=== PATIENT | male | born 1980 | race Caucasian/White ===

== ENCOUNTER 2024-07-14 17:41 | Emergency (ER) | payer OTHER, SELFPAY ==
[2024-07-14 17:47] VITALS: BP 142/105
--- NOTE | 2024-07-14 18:24 | ED.GENMED ---
History of Present Illness
General
Chief Complaint: Chest Pain
Source: patient
Time Seen by Provider: 07/14/24 18:13
History of Present Illness
History of Present Illness:
44-year-old male presents to the emergency room complaining of pain in his left upper chest. Symptoms have been present for approximately a week. He went to [place] 3 days ago where he had labs and a chest x-ray. He was told everything was
fine. However the symptoms have persisted. He describes it as a pounding type discomfort of left upper chest. It does not radiate anywhere. Nothing seems to make it better or worse. He denies any recent travel or periods of immobilization. He
does smoke a pack a day. He takes amlodipine for hypertension and Wegovy for diabetes. He denies feeling significant shortness of breath. No diaphoresis. Exertion does not seem to change the discomfort.
Past History
Past History
ED Past Medical History: HTN, NIDDM and Other (Obesity, cystic kidney causing mild renal insufficiency)
ED Past Surgical History: None
Social History
Tobacco: Smoker
Alcohol: None
Personal:
Living: with family
Employment: Other
Family History
Family History: Other
Phy Exam
Physical Exam
Physical Exam:
General: Awake, Alert, Oriented X3. No acute distress. Very high BMI
Vitals: Mildly tachycardic
Head: Atraumatic
Eyes: Pupils equal, EOMI
Throat: Airway intact, no exudates
Neck: Trachea midline
Lungs: Clear and equal b/l
Heart: Regular rate, no murmurs
Abd: Soft, Nontender, No pulsatile mass
Neuro: Nonfocal
Skin: Warm, dry, no rash
Extremities: pulses equal b/l, no edema
Scores
Heart Score for Chest Pain Patients
STEMI patient?: No
History: Slightly or Non-Suspicious
ECG: Normal
Age: </= 45 years
Risk Factors: 1 or 2 Risk Factors
Troponin: </= Normal Limit
Heart Score for Chest Pain Patients: 1
Heart Score Risk: 2.5% MACE over next 6 weeks
Course
Orders/Labs/Results
Orders:
Orders
07/14/24 17:42
EKG [Electrocardiogram (*1)] Urgent
Reason for Study: Chest Pain
EKG- Treatment ONCE
07/14/24 18:22
Complete Blood Count/With Diff Urgent
Comprehensive Metabolic Panel Urgent
Troponin I Urgent
07/14/24 18:27
D-Dimer Urgent
Abnormal Lab Results
07/14/24
18:22
WBC 13.1 H 10^3/uL
(4.8-10.8)
MCHC 32.5 L g/dL
(33.0-37.0)
RDW 14.8 H %
(11.5-14.5)
Abs Immat Gran (auto) 0.1 H 10^3/uL
(0-0.05)
Absolute Neuts (auto) 9.6 H 10^3/uL
(1.4-6.5)
Absolute Monos (auto) 0.8 H 10^3/uL
(0.1-0.6)
Lymphocytes % 18.9 L %
(20.5-51.1)
Chloride 109 H mmol/L
(98-107)
Carbon Dioxide 17 L mmol/L
(22-30)
BUN 23 H mg/dl
(9-20)
Creatinine 2.3 H mg/dL
(0.7-1.3)
07/14/24 18:22
07/14/24 18:22
Vital Signs
Initial and Last Documented VS:
Initial Vital Signs
Temp Pulse Resp BP Pulse Ox
98.1 F 114 20 142/105 98
07/14/24 17:47 07/14/24 17:47 07/14/24 17:47 07/14/24 17:47 07/14/24 17:47
Last Documented Vital Signs
Temp Pulse Resp BP Pulse Ox
98.1 F 114 20 142/105 98
07/14/24 17:47 07/14/24 17:47 07/14/24 17:47 07/14/24 17:47 07/14/24 17:47
MDM/Problems Addressed
Differential Diagnosis Includes:
Chest wall pain, PE, ACS
MDM/Problems Addressed:
Patient's EKG does not show any acute ischemic changes. Labs are unremarkable including a D-dimer and troponin. Patient had an x-ray just a couple days ago and I do not feel it would be appropriate to repeat it at this time. Suspect
musculoskeletal chest pain. Stable for discharge home.
*Pulse Oximetry
Patient hypoxic: no
*EKG
Interpreted by ED Provider?: Yes
Interpretation: abnormal
Heart Rate: 109
Rate: tachycardiac
Rhythm: sinus tachycardia
Interval: normal interval
QRS Pattern: normal QRS
Ischemia: non-specific ST changes
*Lead Mechanic Interpretation
Rate: tachycardiac
Interpretation: abnormal
Rhythm: sinus tachycardia
*Critical Care Note
Total Time (30-74mins, 75-104mins- exclusive of procedures): Not Applicable
ED Attending Note
-
Portions of this chart may have been created with voice recognition software.� Occasional wrong word or��sound alike� substitutions may have occurred due to the inherent limitations of voice recognition software.
Discharge Plan
Departure
Patient Disposition: Home (Routine Discharge)
Date of Disposition: 07/14/24
Time of Disposition: 19:50
Patient with high blood pressure during this ER visit?: Yes
Condition: Good
Discharge Problem:
Chest pain
Instructions: Chest Pain PCP Follow Up, BLOOD PRESSURE
Prescriptions:
No Action
metformin 500 MG tablet
500 mg PO DAILY
lisinopril 10 MG tablet
10 mg PO DAILY
Referrals:
Alec Mckeon MD [Family Provider] -
Interventions
Interventions:
*Risk Screen - Suicide Last Done: 07/14/24 17:47
*Neglect/Abuse Screening Last Done: 07/14/24 17:47
ED- Fall Risk Assessment Last Done: 07/14/24 20:08
*Nursing Disposition Last Done: 07/14/24 20:08
ED- Cardiac Assessment Last Done: 07/14/24 18:20
Discharge Date and Time
Discharge Date/Time: 07/14/24 20:09
Print Language: IRISH
[2024-07-14 18:29] LABS: % Basophils 0.6 % (0-2); % Eosinophils 0.7 % (0-6); % Immature Granulocytes 0.4 % (0-0.5); % Lymphocytes 18.9 % (20.5-51.1); % Monocytes 6.3 % (1.7-9.3); % Neutrophils 73.1 % (42.2-75.2); Absolute Basophils 0.1 10^3/uL (0-0.2); Absolute Eosinophils 0.1 10^3/uL (0-0.7); Absolute Immature Granulocytes 0.1 10^3/uL (0-0.05); Absolute Lymphocytes 2.5 10^3/uL (1.2-3.4); Absolute Monocytes 0.8 10^3/uL (0.1-0.6); Absolute Neutrophils 9.6 10^3/uL (1.4-6.5); Hematocrit 48.3 % (39.0-52.0); Hemoglobin 15.7 g/dL (13.0-18.0); Mean Corp Hgb Conc. 32.5 g/dL (33.0-37.0); Mean Corpuscular Hgb 27.2 pg (27.0-31.0); Mean Corpuscular Volume 83.6 fL (80.0-94.0); Mean Platelet Volume 9.1 fL (7.4-10.4); Nucleated Red Blood Cells % 0 % (-); Platelet Count 248 10^3/uL (130-400); Red Blood Cell Count 5.78 10^6/uL (4.70-6.10); Red Cell Dist. Width 14.8 % (11.5-14.5); White Blood Cell Count 13.1 10^3/uL (4.8-10.8)
[2024-07-14 18:47] LABS: ALT (SGPT) 30 U/L (0-50); AST (SGOT) 28 U/L (17-59); Albumin 4.4 g/dl (3.5-5.0); Alkaline Phosphatase 78 U/L (38-126); Blood Urea Nitrogen 23 mg/dl (9-20); Calcium 9.5 mg/dl (8.4-10.2); Carbon Dioxide 17 mmol/L (22-30); Chloride 109 mmol/L (98-107); Glucose 99 mg/dl (70-99); Potassium 4.6 mmol/L (3.5-5.1); Sodium 140 mmol/L (135-145); Total Bilirubin 0.6 mg/dl (0.2-1.3); Total Protein 7.7 g/dl (6.3-8.2); eGFR 34.81
[2024-07-14 18:48] LABS: D-Dimer 0.33 ug/mlFEU (0.00-0.50)
[2024-07-14 18:52] LABS: Troponin I < 0.012 ng/ml
== END 2024-07-14 20:09 | disposition home or self-care (01) ==
LOC: EMR 17:41
PROVIDERS: Emergency Medicine; EMERGENCY PHYSICIAN Emergency Medicine; FAMILY PHYSICIAN Family Medicine
DX: R07.89 Other chest pain (principal); E11.9 Type 2 diabetes mellitus without complications; I10 Essential (primary) hypertension; F17.210 Nicotine dependence, cigarettes, uncomplicated
CPT/HCPCS: 99284; 80053; 84484; 85025; 85379; 93005

== ENCOUNTER 2025-05-10 17:01 | Emergency (ER) | payer OTHER, SELFPAY ==
[2025-05-10 17:03] VITALS: BP 160/90
[2025-05-10 17:43] LABS: Hematocrit 48.0 % (39.0-52.0); Hemoglobin 15.9 g/dL (13.0-18.0); Mean Corp Hgb Conc. 33.1 g/dL (33.0-37.0); Mean Corpuscular Volume 82.8 fL (80.0-94.0); Nucleated Red Blood Cells % 0 % (-); Platelet Count 245 10^3/uL (130-400); Red Cell Dist. Width 14.2 % (11.5-14.5)
--- NOTE | 2025-05-10 18:07 | ED.GENMED ---
History of Present Illness
General
Chief Complaint: Abdominal Pain
Source: patient
Exam Limitations: none
Time Seen by Provider: 05/10/25 18:01
Nursing documentation reviewed up to this point in time: agreed with
History of Present Illness
History of Present Illness:
45-year-old male with past medical history of hypertension, diabetes, CKD who presents to the ER for evaluation of epigastric pain. Patient reports symptoms have been ongoing for about 2 weeks that she describes a burning sensation in the
epigastrium that does not radiate. He says symptoms have been consistent but they seem to be worse with eating�today he says triggered by drinking some Mountain Dew. He denies any vomiting or nausea. He has not had any diarrhea. No urinary
symptoms. He denies any chest pain although he does feel that he has been mildly short of breath. He denies any other complaints.
Past History
Past History
ED Past Medical History: HTN, NIDDM and Other (Obesity, cystic kidney causing mild renal insufficiency)
ED Past Surgical History: None
Social History
Tobacco: Smoker
Alcohol: None
Personal:
Living: with family
Employment: Other
Family History
Family History: Other
Review of Systems
Review of Systems
All Other Systems: ROS reviewed and negative except as documented in HPI and ROS
Constitutional: Denies fever or chills
Respiratory: Reports trouble breathing; Denies cough
Cardiac: Denies chest pain
ABD/GI: Reports abdominal pain; Denies nausea, vomiting or diarrhea
: Denies flank pain
Musculoskeletal: Denies neck pain or back pain
Neurological: Denies dizzy or headache
Phy Exam
Physical Exam
Physical Exam:
General: Awake, alert, oriented x3; no acute distress
Head: Normocephalic, atraumatic
Eyes: Conjunctiva normal, sclera anicteric
Throat: Airway intact, handling secretions
Neck: Trachea midline, supple without meningismus
Lungs: Clear to auscultation bilaterally, no wheezing, rales, rhonchi
Heart: Regular rate and rhythm, no murmurs, gallops, or rubs
Abd: Soft, non distended, mildly tender in the epigastrium and right upper quadrant
Neuro: Grossly intact
Skin: no rash in area of concern
Extremities: No edema in extremities, equal pulses in all extremities
Scores
Heart Failure Risk
Heart Failure Risk Score: Not Applicable
Heart Score for Chest Pain Patients
STEMI patient?: Not applicable
Withdrawal Assessment of Alcohol
Withdrawal Assessment Completed?: Not applicable
Course
Orders/Labs/Results
Orders:
Orders
05/10/25 17:06
ECG [Electrocardiogram (*1)] Urgent
Reason for Study: Chest Pain
Other Reason for Exam: Epigastric pain
05/10/25 17:07
EKG- Treatment ONCE
05/10/25 17:18
Complete Blood Count/With Diff Urgent
Comprehensive Metabolic Panel Urgent
Lipase Urgent
Troponin I Urgent
05/10/25 18:22
0.9% Sodium Chloride 500 ml [Nss] 500 ml IV BOLUS
05/10/25 19:02
US Abdomen Complete/Upper Urgent
Comment:
Reason For Exam: upper abd pain
Abnormal Lab Results
05/10/25
17:18
WBC 13.8 H 10^3/uL
(4.8-10.8)
Abs Immat Gran (auto) 0.1 H 10^3/uL
(0-0.05)
Absolute Neuts (auto) 10.0 H 10^3/uL
(1.4-6.5)
Absolute Monos (auto) 0.8 H 10^3/uL
(0.1-0.6)
Lymphocytes % 20.1 L %
(20.5-51.1)
Chloride 111 H mmol/L
(98-107)
Carbon Dioxide 18 L mmol/L
(22-30)
BUN 25 H mg/dl
(9-20)
Creatinine 2.3 H mg/dL
(0.7-1.3)
05/10/25 17:18
05/10/25 17:18
Vital Signs
Initial and Last Documented VS:
Initial Vital Signs
Temp Pulse Resp BP Pulse Ox
36.9 C 106 16 160/90 99
05/10/25 17:03 05/10/25 17:03 05/10/25 17:03 05/10/25 17:03 05/10/25 17:03
Last Documented Vital Signs
Temp Pulse Resp BP Pulse Ox
36.9 C 106 16 97/78 96
05/10/25 17:03 05/10/25 17:03 05/10/25 18:35 05/10/25 19:00 05/10/25 19:08
MDM/Problems Addressed
Differential Diagnosis Includes:
Gastritis/GERD, PUD, cholelithiasis, cholecystitis, pancreatitis; lower clinical suspicion that this is an anginal equivalent
MDM/Problems Addressed:
45-year-old male presents for evaluation of burning epigastric pain as described above. Vitals and exam as above. Plan to check labs including CBC and a CMP, lipase. Check an EKG and troponin abundance of caution. Plan to send for abdominal
ultrasound. Will monitor closely reassess after the above.
Labs reviewed: CBC shows mild leukocytosis, CMP shows stable CKD, mild nongap acidosis chronic setting of renal dysfunction. LFTs and lipase normal. Troponin undetectable with symptoms for the past few days�sufficient to rule out acute [place].
Abdominal ultrasound shows fatty liver, distended gallbladder but no wall thickening or Cardona sign and normal CBD. Overall clinical picture seems most consistent with gastritis or PUD. It is clearly triggered with food, currently he is completely
asymptomatic. Will plan to start on PPI and Carafate, refer to GI for outpatient follow-up. Patient is very comfortable with this plan. Spoke about bland diet, follow-up plan and return precautions. All questions answered.
Chronic conditions affecting care:
GERD
Acute Exacerbation and/or Progression of Chronic Illness: HTN
*Radiology
Radiology exam reviewed: radiology read reviewed
*Pulse Oximetry
SaO2: 99
Oxygen Mode of Delivery: Room air
Patient hypoxic: no (99%)
*EKG
Interpreted by ED Provider?: Yes
Heart Rate: 94
Rate: normal
Rhythm: sinus
[place]: normal axis
Interval: normal interval
QRS Pattern: low voltage
Ischemia: no ischemia
*Critical Care Note
Total Time (30-74mins, 75-104mins- exclusive of procedures): Not Applicable
Data Reviewed
Review of Other/Old Records Reveals: Labs and Records
Source: patient and records
Further Testing Considered But Not Given:
Considered CT abdomen
ED Attending Note
-
Portions of this chart may have been created with voice recognition software.� Occasional wrong word or��sound alike� substitutions may have occurred due to the inherent limitations of voice recognition software.
Discharge Plan
Departure
Patient Disposition: Home (Routine Discharge)
Date of Disposition: 05/10/25
Time of Disposition: 21:44
Patient with high blood pressure during this ER visit?: Yes
Discharge Problem:
Abdominal pain
Instructions: Peptic ulcers, [place] diet
Prescriptions:
New
pantoprazole 40 mg tablet,delayed release (DR/EC)
40 mg PO DAILY Qty: 30 0RF
sucralfate [Carafate] 100 mg/mL suspension
10 ml PO ACHS Qty: 1000 0RF
No Action
metformin 500 MG tablet
500 mg PO DAILY
lisinopril 10 MG tablet
10 mg PO DAILY
Referrals:
Alec Mckeon MD [Family Provider, [facility]] - Follow up in 1 week
Amber Reyes MD [Active, Gastroenterology] - Call in 1-3 days for appt
Referral Note: GI doctor
Activity Restrictions/Additional Instructions:
Thank you for visiting the Emergency Department at [facility].
1. Please schedule a follow up appointment as directed. Call first thing tomorrow morning to make an appointment.
2. If indicated, please take your medications as instructed and indicated on discharge paperwork.
3. If any of your symptoms do not improve, or persist, or become more severe within 6-12 hours, please return to the emergency department for further care.
4. Please return to the emergency department if you develop a headache, neck pain/stiffness, fever greater than 100.4F, chest pain, shortness of breath, persistent nausea, vomiting, slurred speech, difficulty walking, numbness/tingling, weakness,
signs of infection or any other symptoms that are worrisome to you.
Please call [phone] if you have any questions.
Interventions
Interventions:
*Risk Screen - Suicide Last Done: 05/10/25 18:26
*General Assessment Last Done: 05/10/25 18:26
*Neglect/Abuse Screening Last Done: 05/10/25 18:26
*ED- Fall Risk Assessment Last Done: 05/10/25 18:26
*ED COVID-19 Vaccine History Last Done: 05/10/25 18:26
UG-[id number]-[id number] Assessment Last Done: 05/10/25 18:27
Discharge Date and Time
Print Language: MOROCC[place]
[2025-05-10 18:09] LABS: Troponin I < 0.012 ng/ml
[2025-05-10 18:15] LABS: ALT (SGPT) 39 U/L (0-50); AST (SGOT) 25 U/L (17-59); Albumin 4.5 g/dl (3.5-5.0); Alkaline Phosphatase 66 U/L (38-126); Blood Urea Nitrogen 25 mg/dl (9-20); Calcium 9.4 mg/dl (8.4-10.2); Carbon Dioxide 18 mmol/L (22-30); Chloride 111 mmol/L (98-107); Glucose 83 mg/dl (70-99); Lipase 107 U/L (23-300); Potassium 4.8 mmol/L (3.5-5.1); Sodium 138 mmol/L (135-145); Total Protein 7.8 g/dl (6.3-8.2); eGFR 34.60
[2025-05-10 18:24] VITALS: BP 91/80
[2025-05-10 18:26] VITALS: BMI 44.1
[2025-05-10] MEDS: NSS 500 IV (18:33)
[2025-05-10 18:34] VITALS: BP 118/84
[2025-05-10 19:00] VITALS: BP 97/78
== END 2025-05-10 22:02 | disposition home or self-care (01) ==
LOC: EMR 17:01
PROVIDERS: Emergency Medicine; EMERGENCY PHYSICIAN Emergency Medicine; FAMILY PHYSICIAN Family Medicine
DX: R10.13 Epigastric pain (principal); E11.22 Type 2 diabetes mellitus with diabetic chronic kidney disease; I12.9 Hypertensive chronic kidney disease with stage 1 through stage 4 chronic kidney disease, or unspecified chronic kidney disease; N18.9 Chronic kidney disease, unspecified; E66.9 Obesity, unspecified; Z68.41 Body mass index [BMI] 40.0-44.9, adult; K21.9 Gastro-esophageal reflux disease without esophagitis; F17.200 Nicotine dependence, unspecified, uncomplicated; Z79.84 Long term (current) use of oral hypoglycemic drugs
CPT/HCPCS: 99284; 96360; 76700; 80053; 83690; 84484; 85025; 93005